=== PATIENT | female | born 1940 | race Caucasian/White ===

== ENCOUNTER 2022-10-01 18:37 | Emergency (ER) | payer OTHER ==
[2022-10-01 18:54] VITALS: TEMP 98.4; BMI 26.6
[2022-10-01 20:58] LABS: BASO % 0.2 % (0-2.0); EOS % 0.8 % (0-4.5); HEMATOCRIT 38.2 % (32.4-45.2); HEMOGLOBIN 12.4 GM/dL (10.7-15.3); LYMPH % 18.2 % (8-40); MCH 28.1 pg (25.7-33.7); MCHC 32.4 g/dl (32.0-36.0); MEAN CELL VOLUME 86.7 fl (80-96); MEAN PLT VOLUME 8.4 fl (7.5-11.1); MONO % 9.2 % (3.8-10.2); NEUT % 71.6 % (42.8-82.8); PLATELET COUNT 216 10^3/uL (134-434); RBC 4.41 M/mm3 (3.60-5.2); RDW 15.1 % (11.6-15.6)
[2022-10-01 21:19] LABS: ALBUMIN 3.3 g/dl (3.4-5.0); BLOOD UREA NITROGEN 21.5 mg/dL (7-18)
[2022-10-01 21:22] LABS: CREATININE 0.8 mg/dL (0.55-1.3)
[2022-10-01 21:24] LABS: BILIRUBIN,TOTAL 0.4 mg/dL (0.2-1); TOT PROT 7.5 g/dl (6.4-8.2)
[2022-10-01 21:27] LABS: N-TERMINAL BNP 898.9 pg/ml (5-450)
[2022-10-01 22:50] VITALS: BP 163/70; PULSE 60; RESP 15
[2022-10-02] MEDS ORDERED: risperiDONE 0.5 MG TABLET PO ONE (01:42)
[2022-10-02] MEDS ORDERED: risperiDONE 0.5 MG TABLET ONE (01:45)
== END 2022-10-02 05:31 | disposition home or self-care (01) ==
LOC: JER 18:37
DX: R22.43 Localized swelling, mass and lump, lower limb, bilateral (principal); M79.604 Pain in right leg; M79.605 Pain in left leg; Z20.822 Contact with and (suspected) exposure to COVID-19
CPT/HCPCS: 36415; 71045-TC-FY; 80053; 83880; 84484; 85025; 93005; 93010; 93970-TC; 99285-25; C9803-CS; U0003; U0005

== ENCOUNTER 2022-11-01 17:20 | Inpatient (IN) | payer OTHER ==
[2022-11-01 17:49] VITALS: BMI 27.4
[2022-11-01] MEDS ORDERED: ACETAMINOPHEN 1000 MG/100 ML BAG IVPB ONE (18:11)
[2022-11-01] MEDS ORDERED: ACETAMINOPHEN INJECTION 100 ML IVPB ONE (18:24)
[2022-11-01 18:42] LABS: BASO % 0.1 % (0-2.0); EOS % 0.3 % (0-4.5); HEMOGLOBIN 13.1 GM/dL (10.7-15.3); LYMPH % 9.8 % (8-40); MCHC 33.6 g/dl (32.0-36.0); MEAN CELL VOLUME 86.4 fl (80-96); MEAN PLT VOLUME 8.6 fl (7.5-11.1); MONO % 7.9 % (3.8-10.2); NEUT % 81.9 % (42.8-82.8); PLATELET COUNT 192 10^3/uL (134-434); RBC 4.52 M/mm3 (3.60-5.2); RDW 14.7 % (11.6-15.6); WHITE BLOOD COUNT 10.3 K/mm3 (4.0-10.0)
[2022-11-01 18:49] LABS: INR 1.06 (0.83-1.09); PROTHROMBIN TIME (PATIENT) 12.3 SEC (9.7-13.0)
[2022-11-01 19:04] LABS: ALBUMIN 3.4 g/dl (3.4-5.0); BLOOD UREA NITROGEN 25.1 mg/dL (7-18); CALCIUM 9.5 mg/dL (8.5-10.1); MAGNESIUM 2.2 mg/dL (1.8-2.4)
[2022-11-01 19:08] LABS: CREATININE 0.8 mg/dL (0.55-1.3)
[2022-11-01 19:10] LABS: BILIRUBIN,TOTAL 0.6 mg/dL (0.2-1); TOT PROT 7.6 g/dl (6.4-8.2)
[2022-11-01] MEDS ORDERED: TETANUS AND DIPHTHERIA TOXOID 0.5 ML DISP.SYRIN IM ONE (19:23)
[2022-11-01] MEDS ORDERED: DIPHTH,PERTUSS(ACELL),TET 0.5 ML DISP.SYRIN IM ONE (20:28)
[2022-11-02 00:23] LABS: EPI CELLS 11 /uL (0-25.1); HYALINE CASTS 1 /uL (0-3.1); URINE APPEARANCE CLEAR; URINE BACTERIA 11 /uL (0-1359); URINE BILIRUBIN NEGATIVE (NEGATIVE); URINE COLOR YELLOW; URINE GLUCOSE (UA) NEGATIVE (NEGATIVE); URINE KETONE NEGATIVE (NEGATIVE); URINE LEUK ESTERASE NEGATIVE (NEGATIVE); URINE NITRITE NEGATIVE (NEGATIVE); URINE PROTEIN 1+ (NEGATIVE); URINE RBC 14 /uL (0-23.9); URINE WBC 3 /uL (0-25.8)
[2022-11-02 06:26] LABS: BASO % 0.1 % (0-2.0); EOS % 0.4 % (0-4.5); HEMOGLOBIN 12.7 GM/dL (10.7-15.3); LYMPH % 12.6 % (8-40); MCH 29.4 pg (25.7-33.7); MCHC 34.3 g/dl (32.0-36.0); MEAN CELL VOLUME 85.7 fl (80-96); MEAN PLT VOLUME 8.4 fl (7.5-11.1); MONO % 9.3 % (3.8-10.2); NEUT % 77.6 % (42.8-82.8); PLATELET COUNT 184 10^3/uL (134-434); RBC 4.32 M/mm3 (3.60-5.2); WHITE BLOOD COUNT 8.5 K/mm3 (4.0-10.0)
[2022-11-02 06:58] LABS: ALBUMIN 3.5 g/dl (3.4-5.0); BLOOD UREA NITROGEN 14.9 mg/dL (7-18)
[2022-11-02 07:01] LABS: CREATININE 0.6 mg/dL (0.55-1.3)
[2022-11-02 07:03] LABS: BILIRUBIN,TOTAL 1.2 mg/dL (0.2-1); TOT PROT 7.6 g/dl (6.4-8.2)
[2022-11-02] MEDS ORDERED: POTASSIUM CHLORIDE TABS 20 MEQ TABLET.ER (FP) PO ONE (07:30)
[2022-11-02] MEDS: ACETAMINOPHEN 500 MG TABLET (FP) PO SCH ×3 (08:28→23:23)
[2022-11-02] MEDS: DONEPEZIL HCL 10 MG TABLET (FP) PO SCH (10:26)
[2022-11-02] MEDS: metoPROLOL SUCCINATE 25 MG TAB.SR.24H (FP) PO SCH (10:26)
[2022-11-02] MEDS: SERTRALINE HCL 25 MG TABLET (FP) PO SCH (10:26)
[2022-11-02] MEDS ORDERED: INSULIN (NOVOLOG) ASPART 100 UNITS/ML 10ML VIAL ONE ×3 (11:57→21:48)
[2022-11-02] MEDS: INSULIN SLIDING SCALE (NOVOLOG) 1 VIAL SQ SCH ×3 (11:58→21:49)
[2022-11-02] MEDS: ATORVASTATIN CA 40 MG TABLET (FP) PO SCH (21:00)
[2022-11-03] MEDS: INSULIN SLIDING SCALE (NOVOLOG) 1 VIAL SQ SCH ×4 (06:18→22:02)
[2022-11-03] MEDS: ACETAMINOPHEN 500 MG TABLET (FP) PO SCH ×4 (06:40→23:35)
[2022-11-03 08:20] LABS: BLOOD UREA NITROGEN 13.6 mg/dL (7-18)
[2022-11-03 08:24] LABS: CREATININE 0.5 mg/dL (0.55-1.3)
[2022-11-03] MEDS: SERTRALINE HCL 25 MG TABLET (FP) PO SCH (09:00)
[2022-11-03] MEDS: DONEPEZIL HCL 10 MG TABLET (FP) PO SCH (09:00)
[2022-11-03] MEDS: metoPROLOL SUCCINATE 25 MG TAB.SR.24H (FP) PO SCH (09:00)
[2022-11-03] MEDS ORDERED: INSULIN (NOVOLOG) ASPART 100 UNITS/ML 10ML VIAL ONE (12:36)
[2022-11-03] MEDS ORDERED: QUEtiapine FUMARATE 25 MG TABLET PO ONE (16:29)
[2022-11-03] MEDS ORDERED: MELATONIN 5 MG TABLETS PO PRN (20:20)
[2022-11-03] MEDS: ATORVASTATIN CA 40 MG TABLET (FP) PO SCH (21:27)
[2022-11-03] MEDS ORDERED: POTASSIUM CHLORIDE ORAL LIQUID 20 MEQ/15 ML PO ONE (21:48)
[2022-11-04 06:46] VITALS: RESP 18
[2022-11-04] MEDS: INSULIN SLIDING SCALE (NOVOLOG) 1 VIAL SQ SCH ×4 (06:54→21:41)
[2022-11-04] MEDS: metoPROLOL SUCCINATE 25 MG TAB.SR.24H (FP) PO SCH (09:01)
[2022-11-04] MEDS: SERTRALINE HCL 25 MG TABLET (FP) PO SCH (09:01)
[2022-11-04] MEDS: ACETAMINOPHEN 500 MG TABLET (FP) PO SCH ×3 (09:01→23:36)
[2022-11-04] MEDS: DONEPEZIL HCL 10 MG TABLET (FP) PO SCH (09:02)
[2022-11-04] MEDS ORDERED: INSULIN (NOVOLOG) ASPART 100 UNITS/ML 10ML VIAL ONE ×3 (11:32→21:40)
[2022-11-04] MEDS: ATORVASTATIN CA 40 MG TABLET (FP) PO SCH (21:35)
[2022-11-05] MEDS: INSULIN SLIDING SCALE (NOVOLOG) 1 VIAL SQ SCH ×3 (06:16→17:30)
[2022-11-05] MEDS: ACETAMINOPHEN 500 MG TABLET (FP) PO SCH ×2 (06:54→15:50)
[2022-11-05] MEDS ORDERED: HALOPERIDOL LACTATE 5 MG/ML IM ONE (11:24)
[2022-11-05] MEDS: metoPROLOL SUCCINATE 25 MG TAB.SR.24H (FP) PO SCH (11:42)
[2022-11-05] MEDS: DONEPEZIL HCL 10 MG TABLET (FP) PO SCH (11:42)
[2022-11-05] MEDS: SERTRALINE HCL 25 MG TABLET (FP) PO SCH (11:43)
[2022-11-05] MEDS ORDERED: INSULIN (NOVOLOG) ASPART 100 UNITS/ML 10ML VIAL ONE (11:52)
[2022-11-05 13:03] LABS: CALCIUM 8.9 mg/dL (8.5-10.1)
[2022-11-05 13:04] LABS: BLOOD UREA NITROGEN 16.5 mg/dL (7-18); MAGNESIUM 2.1 mg/dL (1.8-2.4)
[2022-11-05 13:07] LABS: CREATININE 0.6 mg/dL (0.55-1.3)
[2022-11-05 14:45] VITALS: TEMP 98.2
[2022-11-05 17:00] VITALS: BP 175/88; PULSE 65
[2022-11-05] MEDS ORDERED: amLODIPine BESYLATE 5 MG TABLET (FP) PO SCH (17:00)
== END 2022-11-05 17:32 | DRG 312 ==
LOC: JER 17:20 → JERBED 18:13 → J4W 11-02 07:25 → OBSVTOIN 11-02 14:09
PROVIDERS: ADMIT Internal Medicine; ATTEND Family Medicine
DX: R55 Syncope and collapse (principal); F02.B11 Dementia in other diseases classified elsewhere, moderate, with agitation; E11.9 Type 2 diabetes mellitus without complications; G30.9 Alzheimer's disease, unspecified; I11.0 Hypertensive heart disease with heart failure; E78.5 Hyperlipidemia, unspecified; R29.6 Repeated falls; I50.9 Heart failure, unspecified
CPT/HCPCS: 0241U-QW; 36415; 70450-TC; 71045-TC-FY; 72125-TC; 72170-TC-FY; 73030-TC-LT-FY; 73130-TC-LT-FY; 73562-TC-RT-FY; 80048; 80053; 81003; 82550; 82553; 82962; 83735; 84484; 85025; 85610; 85730; 86850; 86900; 86901; 87086; 93005; 93010; 97162-GP; 99285-25; G0378